=== PATIENT | female | born 1970 | race Caucasian/White ===

== ENCOUNTER 2017-01-23 14:27 | Emergency (ER) | payer OTHER ==
[~2017-01-23] VITALS: Ht 154.9 cm; Wt 85.0 kg
[~2017-01-23 14:27] MED LIST: BENTYL20 MG PO; FLEXERIL10 MG PO; INDOCIN25 MG PO; LISINOPRIL5 MG PO; NAPROSYN500 MG PO; NAPROXEN500 MG PO; NOHOMEMEDS; TESSALON200 MG PO; VALIUM2 MG PO; ZOFRAN ODT4 MG PO; ZOFRAN4 MG PO
[2017-01-23 14:57] LABS: EOSINOPHIL COUNT 0.2 K/uL (0-0.3); HEMATOCRIT 39.2 % (36.0-46.0); IMMATURE GRANULOCYTE (%) 0.4 % (0.0-0.7); INSTRUMENT ABS NEUTROPHIL CT 3.8 K/uL; LYMPHOCYTE COUNT 3.2 K/uL (1.0-2.8); MCH 26.5 PG (29.0-34.0); MCHC 33.4 G/DL (30.0-36.0); MCV 79.4 FL (83-99); MEAN PLAT.VOLUME 10.8 uM^3 (9.5-12.4); MONOCYTE (%) 8.6 % (3-12); MONOCYTE COUNT 0.7 K/uL (0-0.8); NEUTROPHIL (%) 48.2 % (45-76); NEUTROPHIL COUNT 3.8 K/uL (1.8-6.4); PLATELET COUNT 234 K/uL (156-360); RBC DIS.WIDTH-CV 13.8 % (11.8-14.6); RBC DIS.WIDTH-SD 39.5 % (39-53); RED BLOOD COUNT 4.94 M/uL (3.80-5.20); WHITE BLOOD COUNT 7.8 K/uL (4.1-10.2)
[2017-01-23 15:05] LABS: CHLORIDE 108 mEq/L (99-109); POTASSIUM 4.5 mEq/L (3.7-5.4); SODIUM 138 mEq/L (136-147)
[2017-01-23 15:07] LABS: GLUCOSE 99 mg/dL (70-99)
[2017-01-23 15:08] LABS: ANION GAP 11 MEQ/L (2-14)
[2017-01-23 15:09] LABS: TOTAL BILIRUBIN 0.3 mg/dL (0.0-1.0)
[2017-01-23 15:10] LABS: ALKALINE PHOSPHATASE 97 IU/L (3-129)
[2017-01-23 15:11] LABS: GFR ESTIMATE (CALCULATED) > 59 mL/min/
[2017-01-23 15:12] LABS: UREA NITROGEN (BUN) 16 mg/dL (9-23)
[2017-01-23 15:14] LABS: LIPASE 10 U/L (1.0-51.0)
[2017-01-23 15:22] LABS: ADD MIUA? YES; BILIRUBIN NEGATIVE; BLOOD NEGATIVE; COLOR YELLOW ((YELLOW)); GLUCOSE (STRIP) NEGATIVE; KETONES NEGATIVE; LEUKOCYTES NEGATIVE; NITRITE NEGATIVE; PROTEIN (STRIP) NEGATIVE; SPECIFIC GRAVITY 1.023 (1.000-1.030); UROBILINOGEN 0.2 MG/DL (0.2-1.0)
[2017-01-23 15:26] LABS: INFLUENZA A VIRAL ANTIGEN NEGATIVE; INFLUENZA B VIRAL ANTIGEN NEGATIVE
[2017-01-23 15:30] LABS: BACTERIA NONE SEEN /HPF; EPITHELIAL CELLS 1+ /HPF; MUCUS TRACE /LPF; UCUL ADDED? NO; WHITE BLOOD CELLS 0-5 /HPF (0-5)
[2017-01-23 16:38] VITALS: BP 1113/84
== END 2017-01-23 16:40 | disposition home or self-care (01) ==
LOC: EME 14:27 → EXP 14:27
PROVIDERS: Physician Assistant
DX: B34.9 Viral infection, unspecified (principal); J04.0 Acute laryngitis; I10 Essential (primary) hypertension
CPT/HCPCS: 80053; 81003; 83690; 85025; 87502; 99281; 99284; J2405

== ENCOUNTER 2017-06-20 15:53 | Emergency (ER) | payer OTHER ==
[~2017-06-20] VITALS: Ht 154.9 cm; Wt 97.3 kg
[2017-06-20 16:38] LABS: HEMATOCRIT 39.4 % (36.0-46.0); MCHC 32.2 G/DL (30.0-36.0); MCV 80.6 FL (83-99); MEAN PLAT.VOLUME 11.3 uM^3 (9.5-12.4); PLATELET COUNT 227 K/uL (156-360); RBC DIS.WIDTH-CV 13.8 % (11.8-14.6); RBC DIS.WIDTH-SD 40.8 % (39-53); RED BLOOD COUNT 4.89 M/uL (3.80-5.20); WHITE BLOOD COUNT 6.7 K/uL (4.1-10.2)
[2017-06-20 16:50] LABS: CHLORIDE 108 mEq/L (99-109); POTASSIUM 4.2 mEq/L (3.7-5.4); SODIUM 142 mEq/L (136-147)
[2017-06-20 16:53] LABS: GLUCOSE 93 mg/dL (70-99)
[2017-06-20 16:54] LABS: ANION GAP 11 MEQ/L (2-14); TOTAL BILIRUBIN 0.3 mg/dL (0.0-1.0)
[2017-06-20 16:56] LABS: ALKALINE PHOSPHATASE 101 IU/L (3-129); GFR ESTIMATE (CALCULATED) > 59 mL/min/
[2017-06-20 16:57] LABS: UREA NITROGEN (BUN) 15 mg/dL (9-23)
[2017-06-20 17:05] LABS: QUANTITATIVE HCG < 4.0 MIU/ML
[2017-06-20 18:46] LABS: ADD MIUA? YES; BILIRUBIN NEGATIVE; BLOOD LARGE; COLOR YELLOW ((YELLOW)); GLUCOSE (STRIP) NEGATIVE; KETONES NEGATIVE; LEUKOCYTES NEGATIVE; NITRITE NEGATIVE; PROTEIN (STRIP) 30; SPECIFIC GRAVITY 1.024 (1.000-1.030); UROBILINOGEN 0.2 MG/DL (0.2-1.0)
[2017-06-20 19:25] LABS: BACTERIA NONE SEEN /HPF; EPITHELIAL CELLS RARE /HPF; MUCUS TRACE /LPF; RED BLOOD CELLS 0-5 /HPF (0-5); UCUL ADDED? NO; WHITE BLOOD CELLS 0-5 /HPF (0-5)
[2017-06-20] MEDS ORDERED: BENTYL20 MG PO (20:04)
[2017-06-20] MEDS ORDERED: ZOFRAN ODT4 MG PO (20:04)
[2017-06-20 20:26] VITALS: BP 123/76
== END 2017-06-20 20:27 | disposition home or self-care (01) ==
LOC: EME 15:53
DX: A08.4 Viral intestinal infection, unspecified (principal); I10 Essential (primary) hypertension
CPT/HCPCS: 80053; 81003; 84702; 85027; 99281; 99284; J0500

== ENCOUNTER 2017-08-02 20:30 | Emergency (ER) | payer OTHER ==
[~2017-08-02] VITALS: Ht 154.9 cm; Wt 81.3 kg
[2017-08-02 21:36] LABS: HEMATOCRIT 36.2 % (36.0-46.0); MCH 26.2 PG (29.0-34.0); MCHC 32.6 G/DL (30.0-36.0); MCV 80.3 FL (83-99); PLATELET COUNT 212 K/uL (156-360); RBC DIS.WIDTH-SD 40.9 % (39-53); RED BLOOD COUNT 4.51 M/uL (3.80-5.20); WHITE BLOOD COUNT 9.8 K/uL (4.1-10.2)
[2017-08-02 21:45] LABS: CHLORIDE 105 mEq/L (99-109); POTASSIUM 3.6 mEq/L (3.7-5.4); SODIUM 139 mEq/L (136-147)
[2017-08-02 21:47] LABS: GLUCOSE 106 mg/dL (70-99)
[2017-08-02 21:48] LABS: ANION GAP 11 MEQ/L (2-14)
[2017-08-02 21:49] LABS: TOTAL BILIRUBIN 0.2 mg/dL (0.0-1.0)
[2017-08-02 21:51] LABS: ALKALINE PHOSPHATASE 98 IU/L (3-129); GFR ESTIMATE (CALCULATED) > 59 mL/min/
[2017-08-02 21:52] LABS: UREA NITROGEN (BUN) 13 mg/dL (9-23)
[2017-08-02 21:54] LABS: LIPASE 12 U/L (1.0-51.0)
[2017-08-02] MEDS ORDERED: CARAFATE100 MG/ML PO (22:09)
[2017-08-02 22:28] VITALS: BP 126/72
== END 2017-08-02 22:29 | disposition home or self-care (01) ==
LOC: EME 20:30
PROVIDERS: Physician Assistant
DX: K27.9 Peptic ulcer, site unspecified, unspecified as acute or chronic, without hemorrhage or perforation (principal); R10.12 Left upper quadrant pain; F41.9 Anxiety disorder, unspecified; I10 Essential (primary) hypertension
CPT/HCPCS: 80053; 83690; 85027; 99281; 99284

== ENCOUNTER 2017-11-07 13:22 | Emergency (ER) | payer OTHER ==
[~2017-11-07] VITALS: Ht 154.9 cm; Wt 81.7 kg
[~2017-11-07 13:22] MED LIST changes: +CARAFATE100 MG/ML PO
[2017-11-07 13:51] LABS: APPEARANCE TURBID ((CLEAR)); BILIRUBIN NEGATIVE; BLOOD LARGE; GLUCOSE (STRIP) NEGATIVE; KETONES NEGATIVE; LEUKOCYTES MODERATE; NITRITE NEGATIVE; PROTEIN (STRIP) 100; SPECIFIC GRAVITY 1.025 (1.000-1.030); UROBILINOGEN 0.2 MG/DL (0.2-1.0)
[2017-11-07 13:52] LABS: COLOR RED ((YELLOW))
[2017-11-07 14:05] LABS: BACTERIA RARE /HPF; EPITHELIAL CELLS RARE /HPF; HYALINE CASTS 0-5 /LPF; MUCUS TRACE /LPF; RED BLOOD CELLS TNTC /HPF (0-5); UCUL ADDED? YES; WHITE BLOOD CELLS TNTC /HPF (0-5)
[2017-11-07 14:08] LABS: HEMATOCRIT 39.3 % (36.0-46.0); HEMOGLOBIN 12.8 G/DL (11.9-15.5); MCH 25.4 PG (29.0-34.0); MCHC 32.6 G/DL (30.0-36.0); MCV 78.1 FL (83-99); PLATELET COUNT 260 K/uL (156-360); RBC DIS.WIDTH-CV 13.8 % (11.8-14.6); RBC DIS.WIDTH-SD 39.1 % (39-53); RED BLOOD COUNT 5.03 M/uL (3.80-5.20); WHITE BLOOD COUNT 13.4 K/uL (4.1-10.2)
[2017-11-07 14:18] LABS: CHLORIDE 110 mEq/L (99-109); POTASSIUM 3.9 mEq/L (3.7-5.4); SODIUM 140 mEq/L (136-147)
[2017-11-07 14:20] LABS: GLUCOSE 129 mg/dL (70-99); TOTAL PROTEIN 7.6 g/dL (6.4-8.3)
[2017-11-07 14:23] LABS: ALKALINE PHOSPHATASE 105 IU/L (3-129)
[2017-11-07 14:24] LABS: CREATININE 0.8 mg/dL (0.6-1.3); GFR ESTIMATE (CALCULATED) > 59 mL/min/
[2017-11-07 14:25] LABS: AST (GOT) 15 IU/L (2-34); UREA NITROGEN (BUN) 18 mg/dL (9-23)
[2017-11-07 14:27] LABS: ALT (GPT) 17 IU/L (3-49)
[2017-11-07 14:33] LABS: QUANTITATIVE HCG < 4.0 MIU/ML
[2017-11-07 14:54] LABS: TOTAL BILIRUBIN 0.3 mg/dL (0.0-1.0)
[2017-11-07] MEDS ORDERED: PERCOCET 5/31 TABLET PO (16:28)
[2017-11-07] MEDS ORDERED: MOTRIN800 MG PO (16:28)
[2017-11-07] MEDS ORDERED: KEFLEX500 MG PO (16:28)
[2017-11-07 17:02] VITALS: BP 115/67
== END 2017-11-07 17:04 | disposition home or self-care (01) ==
LOC: EME 13:22
PROVIDERS: Nurse Practitioner Family
DX: N39.0 Urinary tract infection, site not specified (principal); R10.2 Pelvic and perineal pain; I10 Essential (primary) hypertension; F41.9 Anxiety disorder, unspecified
CPT/HCPCS: 76856; 80053; 81003; 84702; 85027; 87086; 99281; 99284; J1885; J2405; J3010; J7030

== ENCOUNTER 2018-02-26 05:14 | Emergency (ER) | payer OTHER ==
[~2018-02-26] VITALS: Ht 154.9 cm; Wt 77.2 kg
[~2018-02-26 05:14] MED LIST changes: +KEFLEX500 MG PO; +MOTRIN800 MG PO; +PERCOCET 5/31 TABLET PO
[2018-02-26] MEDS ORDERED: FLEXERIL10 MG PO (07:42)
[2018-02-26] MEDS ORDERED: MOTRIN800 MG PO (07:42)
[2018-02-26 08:07] VITALS: BP 126/70
== END 2018-02-26 08:10 | disposition home or self-care (01) ==
LOC: EME 05:14
DX: M62.838 Other muscle spasm (principal); M25.511 Pain in right shoulder
CPT/HCPCS: 99281; 99285; J1885; J7512